=== PATIENT | female | born 1995 | race Caucasian/White ===

== ENCOUNTER → 2018-12-04 | Outpatient (CLI) | payer OTHER ==
--- NOTE | 2018-12-04 12:19 | RADIOLOGY IMAGING REPORT ---
FACILITY: [facility] [place] PATIENT NAME: Sandy Johnson : 1995 MR: [id number] V: [id number] EXAM DATE: ORDERING PHYSICIAN: JH MURILLO TECHNOLOGIST: Location: [facility] [place] Patient: Sandy Johnson : 1995 Visit/Account:[id number] Date of Sevice: 12/04/2018 FOOT 3 VIEW LEFT Given history: Twisted ankle. Lateral foot pain. COMPARISON STUDIES: NONE FINDINGS: Osseous structures: There is a nondisplaced transverse fracture at the base of the fifth metatarsal . Remaining osseous structures are intact. Joints: normal . Soft tissues: normal . IMPRESSION: Nondisplaced fracture base of the fifth metatarsal left foot Report Dictated By: Harjinder Rivera MD at 12/04/2018 12:10 PM Report E-Signed By: Harjinder Rivera MD at 12/04/2018 12:12 PM WSN:[id number]
== END ==
LOC: RAD 10:12
PROVIDERS: ATTEND Family Medicine
DX: S92.355A Nondisplaced fracture of fifth metatarsal bone, left foot, initial encounter for closed fracture (principal)